=== PATIENT | female | born 1985 | race Caucasian/White ===

== ENCOUNTER 2020-12-18 16:32 | Emergency (ER) | payer MEDICAID, SELFPAY ==
[2020-12-18 16:35] VITALS: BP 114/54; PULSE 77; RESP 18; TEMP 36.8; O2SAT 97; BMI 26.6
--- NOTE | 2020-12-18 17:25 | HMH.EDUTC ---
[facility] Disposition Clinical Impression: Tick bite Qualifiers: Encounter type: initial encounter Qualified Code(s): W57.XXXA - Bitten or stung by nonvenomous insect and other nonvenomous arthropods, initial encounter Disposition: Home, Self-Care Condition on Discharge: Good Instructions: How to Remove a Tick, Protect Yourself from Tickborne Illnesses Additional Instructions: Check your body often when out in grass or high weeds for ticks Make sure that if you remove a tick from your skin you investigate and look at the tick to make sure you have removed the whole tick and not left the head Return if needed Watch area for signs of tick borne illness, bulls eye rash etc Straight to ER if any life threatening symptoms Referrals: Provider,Referral, MD [Primary Care Provider] - As needed Forms: Work/School Release Time of Disposition: 17:28 Medical Decision Making - Oswald Inquiry Pt receiving controlled substance: No Oswald was queried for this patient: No Vital Signs: 12/18/20 16:35 Temperature 98.3 F Temperature Source Oral Pulse Rate [Right Brachial] 77 Respiratory Rate 18 Blood Pressure [Right Arm] 114/54 L Blood Pressure Mean [Right Arm] 74 Blood Pressure Source [Right Arm] Automatic Cuff Blood Pressure Position [Right Arm] Sitting 02 Sat by Pulse Oximetry 97 Oxygen Delivery Method Room Air Medical Decision Narrative: small brown/black particle noted where patient was bitten by tick and family member removed tick but they think head remained attached to skin, area was scrapped with needle and object removed no other tick parts noted [facility] HPI - General Stated complaint: tick bite Time Seen by Provider: 12/18/20 17:25 Mode of Arrival: Ambulatory Source of Information: Patient Limitations: No Limitations Description of Symptoms (Recalled from Triage Doc. by RN): PATIENT C/O TICK TO LEFT SIDE THAT SHE NOTICED TODAY. TICK WAS REMOVED AT HOME BUT SHE THINKS THE HEAD IS STILL UNDER HER SKIN HEENT Symptoms (Recalled from RN notes): No Resp Symptoms (Recalled from RN notes): No Skin Symptoms (Recalled from RN notes): Yes MS Symptoms (Recalled from RN notes): No Functional Status (Recalled from RN notes): WNL - History of Present Illness Provider Complaint: Patient states that she noticed she had a small tick on her left side just under her bra strap States that family member removed it but they did not see the head on the tick and looked like it may have still been stuck in her skin so she came in - Related Data Allergies Allergy/AdvReac Type Severity Reaction Status Date / Time butabarbital [BUTABARBITAL] Allergy Mild Verified 01/09/19 00:31 butorphanol [BUTORPHANOL] Allergy Mild Verified 01/09/19 00:31 caffeine [CAFFEINE] Allergy Mild Verified 01/09/19 00:31 codeine [CODEINE] Allergy Mild Verified 01/09/19 00:31 ketorolac [From TORADOL] Allergy Mild Verified 01/09/19 00:31 mushroom Allergy Mild Verified 01/09/19 00:31 [From MUSHROOMS (FOOD/DRUG)] propoxyphene [PROPOXYPHENE] Allergy Mild Verified 01/09/19 00:31 propranolol [PROPRANOLOL] Allergy Mild Verified 01/09/19 00:31 sumatriptan [SUMATRIPTAN] Allergy Mild Verified 01/09/19 00:31 From MUSHROOMS (FOOD/DRUG) Allergy Mild Uncoded 06/12/17 14:57 - Worker's Comp Is this a Worker's Comp case?: No [facility] History - Hepatitis A Screen Drug use history?: No High risk sexual behaviors?: No History of sexually transmitted infection?: No Currently employed?: No Childcare worker?: No Do you have indoor plumbing?: Yes Do you have electricity?: Yes Attestation statement:: This patient has been screened for Hepatitis A risk factors. I have reviewed the patient's past medical history: Yes Laterality Cases: Right: Other - Social History Smoking Status: Current every day smoker Tobacco Type: cigarettes # Packs/Day (cigarettes): 1 Alcohol Intake: never Substance Use Type: opiates, inhalants Occupational Status: employed ROS Obtained: Yes All
[2020-12-18 17:27] VITALS: BP 114/54; PULSE 77; RESP 18; TEMP 36.8; O2SAT 97
== END 2020-12-18 17:30 | disposition home or self-care (01) ==
PROVIDERS: Emergency Provider Nurse Practitioner
DX: S20.462A Insect bite (nonvenomous) of left back wall of thorax, initial encounter (principal); W57.XXXA Bitten or stung by nonvenomous insect and other nonvenomous arthropods, initial encounter; F17.210 Nicotine dependence, cigarettes, uncomplicated
CPT/HCPCS: 99202; G0463

== ENCOUNTER 2022-06-08 11:56 | Emergency (ER) | payer MEDICAID, SELFPAY ==
[2022-06-08 12:40] VITALS: BP 119/76; PULSE 68; RESP 19; TEMP 36.9; O2SAT 98; BMI 25.4
--- NOTE | 2022-06-08 12:51 | EXP.UTC ---
Discharge Plan Disposition Patient Disposition: Home, Self-Care Condition: Good Prescriptions Prescriptions: New ondansetron 4 mg Tablet,Disintegrating 4 mg PO Q8H PRN (Reason: Nausea) Qty: 20 0RF Referrals Follow up/Referrals: Provider,Referral, [Primary Care Provider] - See instructions Activity Restrictions/Add. Instructions Additional Instructions/Restrictions: Drink plenty of fluids. Take tylenol or ibuprofen for pain or fever. Take the medications as directed. Follow up with your regular doctor. GO TO THE ER FOR ANY WORSENING SYMPTOMS Clinical Impressions Clinical Impression: Gastroenteritis Stand Alone Forms Stand Alone Forms: Work/School Release Instructions Patient Instructions: DI for Viral Gastroenteritis -- Adult Discharge ED Provider: Gerardo Frank [facility] General Stated complaint: vomiting, diarrhea Time Seen by Provider: 06/08/22 12:50 History of Present Illness Provider Complaint: She c/o n/v/d since last night. She denies any abdominal pain. Related Data Previous Rx's Medication Instructions Recorded ondansetron 4 mg disintegrating 4 mg PO Q8H PRN Nausea #20 tabs 06/08/22 tablet Allergies Allergy/AdvReac Type Severity Reaction Status Date / Time butabarbital [BUTABARBITAL] Allergy Mild Verified 01/09/19 00:31 butorphanol [BUTORPHANOL] Allergy Mild Verified 01/09/19 00:31 caffeine [CAFFEINE] Allergy Mild Verified 01/09/19 00:31 codeine [CODEINE] Allergy Mild Verified 01/09/19 00:31 ketorolac [From TORADOL] Allergy Mild Verified 01/09/19 00:31 mushroom Allergy Mild Verified 01/09/19 00:31 [From MUSHROOMS (FOOD/DRUG)] propoxyphene [PROPOXYPHENE] Allergy Mild Verified 01/09/19 00:31 propranolol [PROPRANOLOL] Allergy Mild Verified 01/09/19 00:31 sumatriptan [SUMATRIPTAN] Allergy Mild Verified 01/09/19 00:31 From MUSHROOMS (FOOD/DRUG) Allergy Mild Uncoded 06/12/17 14:57 [facility] Disclaimer: The information contained in this section may have been updated after the patient was seen, as this information can be updated by other users. Medical History Kidney stone Surgical History History of cholecystectomy Social History Smoking Status: Current every day smoker tobacco type: cigarettes packs per day: 1 alcohol intake: never substance use type: opiates and inhalants current occupational status: employed Travel in the last 8 weeks: None ROS Obtained: Yes All systems reviewed & no additional complaints except as documented Constitutional Constitutional: Denies chills, Denies fever(s) and Reports poor appetite ENT Ears, Nose, Mouth, and Throat: Denies dizziness and Denies sore throat Cardiovascular Cardiovascular: Denies dyspnea Respiratory Respiratory: Denies chest congestion, Denies cough and Denies dyspnea Gastrointestinal Gastrointestingal: Reports as per HPI; Denies abdominal pain Genitourinary Female Genitourinary: Denies difficulty voiding, Denies dysuria, Denies hematuria, Denies urinary frequency, Denies urinary incontinence, Denies urinary hesitancy and Denies urinary urgency Musculoskeletal Musculoskeletal: Denies arthralgias Integumentary/Breasts Skin/Breast: Denies rash Neurologic Neurologic: Denies dizziness Physical Exam General General appearance: alert and in no apparent distress Head Head exam: atraumatic and normocephalic Eye Eye exam: Present normal appearance, PERRL and EOMI ENT ENT exam: Present normal exam, normal oropharynx, mucous membranes moist, TM's normal bilaterally and normal external ear exam Neck Neck exam: Present normal inspection, full ROM and trachea midline; Absent tenderness, meningismus or lymphadenopathy Chest Chest inspection: Present normal inspection and symmetric chest wall rise; Absent tenderness, rash or abscess Respiratory
[2022-06-08 13:36] VITALS: BP 119/76; PULSE 68; RESP 19; TEMP 36.9; O2SAT 98
== END 2022-06-08 13:42 | disposition home or self-care (01) ==
PROVIDERS: Emergency Provider Nurse Practitioner Family
DX: K52.9 Noninfective gastroenteritis and colitis, unspecified (principal)
CPT/HCPCS: 99212; G0463